=== PATIENT | female | born 1980 | race Caucasian/White ===

== ENCOUNTER 2020-08-27 07:21 | Day surgery (SDC) | payer MEDICAID ==
[2020-08-20 11:51] LABS: BASOPHILS % (AUTO) 0.6 % (0-1); EOSINOPHILS # (AUTO) 0.1 X10'3 (0-0.9); EOSINOPHILS % (AUTO) 0.8 % (0-6); LYMPHOCYTES # (AUTO) 2.5 X10'3 (1.1-4.8); LYMPHOCYTES % (AUTO) 37.9 % (21-51); MEAN CORPUSCULAR HGB CONC 33.9 g/dL (33.0-36.5); MEAN CORPUSCULAR VOLUME 91.6 FL (78-98); MEAN PLATELET VOLUME 9.5 FL (7.4-10.4); MONOCYTES # (AUTO) 0.4 X10'3 (0-0.9); MONOCYTES % (AUTO) 6.4 % (2-12); NEUTROPHILS # (AUTO) 3.6 X10'3 (1.8-7.7); NEUTROPHILS % (AUTO) 54.3 % (42-75); PRE OP HEMATOCRIT 38.1 % (35.0-45.0); PRE OP HEMOGLOBIN 12.9 g/dL (12.0-16.0); PRE OP PLATELET COUNT 245 X10'3 (140-440); RED BLOOD COUNT 4.16 X10'6 (4.20-5.60); RED CELL DISTRIBUTION WIDTH 12.8 % (11.5-14.5)
[2020-08-20 12:05] LABS: ALBUMIN 4.4 G/DL (3.4-5.0); ALBUMIN/GLOBULIN RATIO 1.3 (1.1-1.5); ALKALINE PHOSPHATASE 50 IU/L (46-116); BLOOD UREA NITROGEN 9 MG/DL (7-18); BUN/CREATININE RATIO 15.8 (6.6-38.0); CALCIUM 8.8 MG/DL (8.5-10.1); CHLORIDE 104 MMOL/L (99-107); CREATININE 0.57 MG/DL (0.40-0.90); PRE OP ALT 38 U/L (30-65); PRE OP ANION GAP 6 (8-16); PRE OP AST 20 U/L (10-37); PRE OP BILIRUB, TOTAL 0.5 MG/DL (0.0-1.0); PRE OP GLUCOSE 88 MG/DL (70-104); PRE OP POTASSIUM 4.4 MMOL/L (3.4-5.1); PRE OP SODIUM 140 MMOL/L (135-145); TOTAL CARBON DIOXIDE 30.4 MMOL/L (24-32); TOTAL PROTEIN 7.9 G/DL (6.4-8.2); eGFR > 90 ML/MIN
[2020-08-27] VITALS (8 sets, daily range): BP systolic 101–120; BP diastolic 66–78
[~2020-08-27] VITALS: Ht 172.7 cm; Wt 53.0 kg
[~2020-08-27 07:21] MED LIST: DICL50TA8 PO; METH500T6 PO; SUMA100T16 PO; TRAM1TAB7 PO; ceFAZolin 2gm in dextrose, iso 50 ML IV ONE; famotidine 10mg tablet PO ONE; ringers solution, lacted 1,000 ML IV SCH; scopolamine 1.5mg patch.TD72 TD ONE
[2020-08-27] MEDS ORDERED: BUPIVAcaine/PF 2.5 mg/ml (0.25%) 30ml vial ONE (07:47)
[2020-08-27] MEDS ORDERED: MIDAZolam 5mg/5ml vial ONE (11:22)
[2020-08-27] MEDS ORDERED: fentaNYL/PF 50MCG/1 ML 2ML syringe ONE (11:22)
[2020-08-27] MEDS ORDERED: ketorolac trometh. 30mg/ml inj. ONE (11:39)
[2020-08-27] MEDS ORDERED: 0.9 % SODIUM CHLORIDE 10 ML VIAL ONE (11:39)
--- NOTE | 2020-08-27 12:10 | NUR ---
Received from [place] via [facility], accompanied by Anesthesiologist YOSEF and report given by Anesthesiolgist. PT DROWSY, OXYGENATING WELL ON ROOM AIR, NO RESP DISTRESS NOTED. DWNIES NAUSEA, HAS SCOPALAMINE PATCH IN PLACE BEHIND L EAR. DENIES PAIN. SOFT SPLINT WITH PAIGE BANDAGE TO JOSE, RUSSELL. R FINGERS PWD, CSM CHECK WNL. VSS.
--- NOTE | 2020-08-27 13:20 | NUR ---
PT HAS NO PAIN, BLOCK STILL EFFECTIVE. VSS. TOLERATING PO FLUIDS WELL. DC INSTRUCTIONS EXPLAINED TO PT, SHE VERBALIZED UNDERSTANDING. PT WAS PROVIDED A SLING FOR HER RUE AND 2 ICE BAGS. DCD IN STABLE CONDITION, TAKEN TO CAR VIA WC.
== END 2020-08-27 13:20 | disposition home or self-care (01) ==
LOC: PAS 07:21
PROVIDERS: ATTEND Orthopaedic Surgery Hand Surgery
DX: M77.01 Medial epicondylitis, right elbow (principal); M77.11 Lateral epicondylitis, right elbow; G89.29 Other chronic pain; G43.909 Migraine, unspecified, not intractable, without status migrainosus; Z79.899 Other long term (current) drug therapy; Z90.710 Acquired absence of both cervix and uterus; Z98.890 Other specified postprocedural states; Z87.891 Personal history of nicotine dependence; Z20.828 Contact with and (suspected) exposure to other viral communicable diseases; Z82.49 Family history of ischemic heart disease and other diseases of the circulatory system; Z83.6 Family history of other diseases of the respiratory system
CPT/HCPCS: 24341; 24358; 36415; 80053; 82948; 85025; 87635; A6222; J1885; J2250; J3010; J3490; J7120; A4215; A4618; A6446; A6449; A7000

== ENCOUNTER → 2021-06-25 | Emergency (ER) | payer MEDICAID ==
[~2021-06-25] VITALS: Ht 172.7 cm; Wt 56.8 kg
[~2021-06-25] MED LIST changes: +AMOX-422 PO; +CefTRIAXone 2gm/D5W 50ml BAG 50 ML IV ONE; +HYDR-3965 PO; +HYDROcodone/acetaminophen 10/325mg tab PO ONE; +METH-797 PO; -METH500T6 PO; +TETanus/Pertussis (Acell)/Diphther VAC/PF (Tdap-Adult) 0.5ml syringe IMVAC ONE; -ceFAZolin 2gm in dextrose, iso 50 ML IV ONE; -famotidine 10mg tablet PO ONE; -ringers solution, lacted 1,000 ML IV SCH; -scopolamine 1.5mg patch.TD72 TD ONE
[2021-06-25 12:56] VITALS: BP 122/80
== END | disposition home or self-care (01) ==
LOC: ER 12:54
DX: S61.052A Open bite of left thumb without damage to nail, initial encounter (principal); W55.01XA Bitten by cat, initial encounter; Y93.89 Activity, other specified; Y92.89 Other specified places as the place of occurrence of the external cause; Y99.8 Other external cause status
CPT/HCPCS: 90471; 90715; 96365; 99284; J0696

== ENCOUNTER 2024-10-10 07:11 | Outpatient (CLI) | payer MEDICAID ==
[~2024-10-10 07:11] MED LIST changes: -AMOX-422 PO; -CefTRIAXone 2gm/D5W 50ml BAG 50 ML IV ONE; +GADOTERATE MEGLUMINE 7.5 MMOL/15 ML VIAL IV ONE; -HYDR-3965 PO; -HYDROcodone/acetaminophen 10/325mg tab PO ONE; +LIDOcaine 1% 30ml preserv. free vial ONE; +LIDOcaine 1%/PF 5ML 10 MG/ML VIAL ONE; -TETanus/Pertussis (Acell)/Diphther VAC/PF (Tdap-Adult) 0.5ml syringe IMVAC ONE; +TRAM-528 PO; -TRAM1TAB7 PO; +iohexol 300 MG/1 ML 50ml polymer ONE
== END 2024-10-10 23:59 | disposition home or self-care (01) ==
LOC: RAD 07:11
PROVIDERS: ATTEND Pediatrics Sports Medicine
DX: S43.431A Superior glenoid labrum lesion of right shoulder, initial encounter (principal); M19.011 Primary osteoarthritis, right shoulder; M75.51 Bursitis of right shoulder; M75.41 Impingement syndrome of right shoulder; M25.511 Pain in right shoulder; X58.XXXA Exposure to other specified factors, initial encounter; Y93.89 Activity, other specified; Y92.89 Other specified places as the place of occurrence of the external cause; Y99.8 Other external cause status
CPT/HCPCS: 23350; 73222; 77002; A9575; J2003; J3490; Q9967; 73040

== ENCOUNTER 2024-12-11 05:55 | Outpatient (CLI) | payer MEDICAID ==
[~2024-12-11 05:55] MED LIST changes: -GADOTERATE MEGLUMINE 7.5 MMOL/15 ML VIAL IV ONE; -LIDOcaine 1% 30ml preserv. free vial ONE; -LIDOcaine 1%/PF 5ML 10 MG/ML VIAL ONE; -iohexol 300 MG/1 ML 50ml polymer ONE
== END 2024-12-11 23:59 | disposition home or self-care (01) ==
LOC: MRI02 05:55
PROVIDERS: ATTEND Pediatrics Sports Medicine
DX: M43.8X4 Other specified deforming dorsopathies, thoracic region (principal); S43.432A Superior glenoid labrum lesion of left shoulder, initial encounter; M47.812 Spondylosis without myelopathy or radiculopathy, cervical region; M54.2 Cervicalgia; M25.512 Pain in left shoulder; M25.522 Pain in left elbow; M77.12 Lateral epicondylitis, left elbow; M25.521 Pain in right elbow; M25.511 Pain in right shoulder; M75.41 Impingement syndrome of right shoulder; X58.XXXA Exposure to other specified factors, initial encounter; Y93.89 Activity, other specified; Y92.89 Other specified places as the place of occurrence of the external cause; Y99.8 Other external cause status
CPT/HCPCS: 72146